=== PATIENT | female | born 1970 | race Caucasian/White ===

== ENCOUNTER 2017-10-26 01:06 | Emergency (ER) | payer SELFPAY, OTHER ==
[2017-10-26] MEDS: ONDANSETRON 4 MG INJ IV (01:57)
[2017-10-26] MEDS: morphine 4 MG/ML VIAL IV (01:58)
[2017-10-26] MEDS: SOD CHLORIDE 0.9% 500 ML IV (02:04)
[2017-10-26 02:23] LABS: ADD MAN DIFF? NO
[2017-10-26 02:26] LABS: WHITE BLOOD COUNT 6.5 10^3/ul (4.8-10.8)
[2017-10-26 02:26] LABS: BASOPHILS % 0.2 % (0.0-2.0); EOSINOPHILS # 0.1 10^3/ul (0.0-0.5); EOSINOPHILS % 1.4 % (0.0-7.0); HEMOGLOBIN 14.4 g/dl (12.0-16.0); LYMPHOCYTES # 1.7 10^3/ul (0.8-2.9); LYMPHOCYTES % 26.5 % (15.0-51.0); MEAN CORPUSCULAR HEMOGLOBIN 28.8 pg (29.0-33.0); MEAN CORPUSCULAR HGB CONC 34.3 g/dl (32.0-37.0); MEAN PLATELET VOLUME 10.2 fl (7.4-10.4); MONOCYTE # 0.4 10^3/ul (0.3-0.9); MONOCYTES % 5.7 % (0.0-11.0); NEUTROPHIL # 4.3 10^3/ul (1.6-7.5); NEUTROPHILS % 65.9 % (39.0-77.0); PLATELET COUNT 198 10^3/UL (140-415); RED CELL DISTRIBUTION WIDTH 13.9 % (11.5-14.5)
[2017-10-26 02:42] LABS: ADD UMIC YES; UR ASCORBIC ACID NEGATIVE (NEGATIVE); UR BACTERIA MANY /HPF (NONE SEEN); UR BILIRUBIN (Dip) NEGATIVE (NEGATIVE); UR BLOOD (Dip) 2+ mg/dL (NEGATIVE); UR BUDDING YEAST FEW /HPF (NONE SEEN); UR CLARITY SLIGHTLY CLOUDY (CLEAR); UR COLOR YELLOW (YELLOW); UR GLUCOSE (Dip) NEGATIVE (NEGATIVE); UR KETONES (Dip) NEGATIVE (NEGATIVE); UR LEUKOCYTE ESTERASE (Dip) 3+ Leu/ul (NEGATIVE); UR MUCUS FEW /HPF (NONE SEEN); UR NITRITE (Dip) NEGATIVE (NEGATIVE); UR RBC 19 /HPF (0-5); UR SPECIFIC GRAVITY (Dip) 1.011 (1.003-1.030); UR TOTAL PROTEIN (Dip) 2+ mg/dl (NEGATIVE); UR UROBILINOGEN (Dip) NEGATIVE (NEGATIVE); UR WBC 33 /HPF (0-5)
[2017-10-26 02:45] LABS: ALANINE AMINOTRANSFERASE 36 IU/L (13-69); ALBUMIN 4.5 g/dl (3.3-4.9); ALBUMIN/GLOBULIN RATIO 1.28; ALKALINE PHOSPHATASE 90 IU/L (42-121); ANION GAP 17 (8-16); ASPARTATE AMINO TRANSFERASE 24 IU/L (15-46); BILIRUBIN,INDIRECT 0.5 mg/dl (0-1.1); BILIRUBIN,TOTAL 0.5 mg/dl (0.2-1.3); BLOOD UREA NITROGEN 13 mg/dl (7-20); CALCIUM 9.5 mg/dl (8.4-10.2); CARBON DIOXIDE 27 mmol/L (21-31); CHLORIDE 103 mmol/L (97-110); CREATININE 0.91 mg/dl (0.44-1.00); GLUCOSE 115 mg/dl (70-220); LIPASE 150 U/L (23-300); POTASSIUM 3.1 mmol/L (3.5-5.1); SODIUM 144 mmol/L (135-144)
[2017-10-26] MEDS: KETOROLAC 30 MG INJ IV (04:58)
[2017-10-26] MEDS: CEFTRIAXONE 1 GM/50 ML (PMX) 50 ML IVPB (04:58)
== END 2017-10-26 06:36 | disposition home or self-care (01) ==
LOC: E/R 01:06
DX: N12 Tubulo-interstitial nephritis, not specified as acute or chronic (principal)
CPT/HCPCS: 36415; 74176; 80053; 81001; 83690; 84703; 85025; 96374; 96375; 99285-25